=== PATIENT | male | born 1945 ===

== ENCOUNTER 2023-02-23 10:29 | Inpatient (IN) ==
[2023-02-23] MEDS ORDERED: IOPAMIDOL 100 ML BOTTLE IV ONE (10:30)
[2023-02-23] MEDS ORDERED: 0.9 % SODIUM CHLORIDE 1,000 ML IV ONE (10:39)
[2023-02-23] MEDS ORDERED: ONDANSETRON 4 MG/2 ML VIAL IV ONE (10:47)
[2023-02-23 10:54] LABS: POC Calcium, Ionized 1.17 (1.16-1.32); POC Creatinine 1.2 (0.6-1.2)
[2023-02-23 11:51] LABS: Basophils # (Auto) 0.04 K/mcL (0.00-0.30); Basophils % (Auto) 0.3 % (0.0-2.0); Eosinophils # (Auto) 0.07 K/mcL (0.00-0.70); Eosinophils % (Auto) 0.5 % (0.0-7.0); Hematocrit 41.2 % (40.1-51.0); Hemoglobin 13.9 g/dL (13.7-17.5); Lymphocytes % (Auto) 2.6 % (15.5-49.0); Mean Cell Volume 92.2 fL (80.0-100.0); Mean Corpuscular HGB Conc 33.7 g/dL (31.0-36.0); Mean Platelet Volume 10.2 fL (8.8-12.5); Monocytes # (Auto) 1.37 K/mcL (0.10-0.90); Monocytes % (Auto) 8.9 % (1.0-12.0); Neutrophils % (Auto) 87.1 % (38.0-78.0); Platelet Count 242 K/mcL (140-440); RBC 4.47 M/mcL (4.63-6.08); Red Cell Distribution Width 13.2 % (11.5-14.5); WBC 15.4 K/mcL (4.5-11.0)
[2023-02-23 12:05] LABS: ALT/SGPT 12 U/L (<40); AST/SGOT 13 U/L (<40); Albumin 3.8 gm/dL (3.2-5.2); Alkaline Phosphatase 41 U/L (39-117); Bilirubin,Direct 0.3 mg/dL (<0.3); Bilirubin,Total 1.1 mg/dL (0.1-1.0); Globulin 2.6 gm/dL (2.2-3.7)
[2023-02-23] MEDS ORDERED: PIPERACILLIN SODIUM/TAZOBACTAM 3.375 GM in DEXTROSE 5% IN WATER 50 ML IV ONE (13:05)
[2023-02-23] MEDS ORDERED: ONDANSETRON 4 MG/2 ML VIAL IV PRN (15:35)
[2023-02-23] MEDS ORDERED: MEROPENEM 1 GM in 0.9 % SODIUM CHLORIDE 50 ML IV SCH (15:45)
[2023-02-23] MEDS ORDERED: HYDROmorphone 0.5 MG/0.5 ML SYRINGE IV PRN (15:55)
[2023-02-23] MEDS: MEROPENEM 1 GM in 0.9 % SODIUM CHLORIDE 50 ML IV SCH ×2 (18:49→23:24)
[2023-02-23] MEDS: DEXTROSE 5%-LR 1,000 ML IV SCH (19:20)
[2023-02-23] MEDS: ACETAMINOPHEN 1,000 MG/100 ML BAG IV SCH (22:13)
[2023-02-24] MEDS: ACETAMINOPHEN 1,000 MG/100 ML BAG IV SCH ×3 (05:02→21:38)
[2023-02-24] MEDS: MEROPENEM 1 GM in 0.9 % SODIUM CHLORIDE 50 ML IV SCH ×3 (05:50→22:35)
[2023-02-24 07:01] LABS: Hematocrit 36.6 % (40.1-51.0); Hemoglobin 12.1 g/dL (13.7-17.5); Mean Corpuscular HGB Conc 33.1 g/dL (31.0-36.0); Mean Platelet Volume 10.1 fL (8.8-12.5); Platelet Count 210 K/mcL (140-440); RBC 3.98 M/mcL (4.63-6.08); Red Cell Distribution Width 13.2 % (11.5-14.5); WBC 9.2 K/mcL (4.5-11.0)
[2023-02-24 07:27] LABS: Blood Urea Nitrogen 16 mg/dL (8-23); Calcium 8.3 mg/dL (8.6-10.4); Carbon Dioxide 24 mmol/L (22-30); Chloride 99 mmol/L (96-108); Glomerular Filtration Rate 73; Glucose 93 mg/dL (70-105)
[2023-02-24] MEDS: METOPROLOL SUCCINATE 50 MG TAB.XL.24H PO SCH (10:30)
[2023-02-24] MEDS: LOSARTAN 50 MG TABLET PO SCH (10:30)
[2023-02-24] MEDS: CHLORTHALIDONE 25 MG TABLET PO SCH (10:31)
[2023-02-24] MEDS: DEXTROSE 5%-LR 1,000 ML IV SCH ×2 (10:45→12:22)
[2023-02-25] MEDS: DEXTROSE 5%-LR 1,000 ML IV SCH ×2 (03:58→11:32)
[2023-02-25] MEDS: MEROPENEM 1 GM in 0.9 % SODIUM CHLORIDE 50 ML IV SCH ×3 (05:37→21:17)
[2023-02-25] MEDS: ACETAMINOPHEN 1,000 MG/100 ML BAG IV SCH ×3 (06:10→21:57)
[2023-02-25 07:25] LABS: Hematocrit 39.7 % (40.1-51.0); Hemoglobin 13.1 g/dL (13.7-17.5); Mean Cell Volume 93.2 fL (80.0-100.0); Mean Platelet Volume 10.2 fL (8.8-12.5); Platelet Count 247 K/mcL (140-440); RBC 4.26 M/mcL (4.63-6.08); Red Cell Distribution Width 12.8 % (11.5-14.5); WBC 6.4 K/mcL (4.5-11.0)
[2023-02-25 08:27] LABS: Blood Urea Nitrogen 9 mg/dL (8-23); Calcium 8.8 mg/dL (8.6-10.4); Carbon Dioxide 30 mmol/L (22-30); Chloride 97 mmol/L (96-108); Glomerular Filtration Rate 87; Glucose 96 mg/dL (70-105)
[2023-02-25] MEDS: CHLORTHALIDONE 25 MG TABLET PO SCH (08:40)
[2023-02-25] MEDS: METOPROLOL SUCCINATE 50 MG TAB.XL.24H PO SCH (08:42)
[2023-02-25] MEDS: LOSARTAN 50 MG TABLET PO SCH (08:42)
[2023-02-25] MEDS ORDERED: POTASSIUM CHLORIDE 20 MEQ TABLET PO SCH (10:45)
[2023-02-25] MEDS: DEXTROSE 5%-NS W/20MEQ KCL 1,000 ML IV SCH (11:06)
[2023-02-26] MEDS: MEROPENEM 1 GM in 0.9 % SODIUM CHLORIDE 50 ML IV SCH (05:47)
[2023-02-26] MEDS: ACETAMINOPHEN 1,000 MG/100 ML BAG IV SCH (05:49)
[2023-02-26] MEDS: DEXTROSE 5%-NS W/20MEQ KCL 1,000 ML IV SCH (07:19)
[2023-02-26 07:42] LABS: Blood Urea Nitrogen 9 mg/dL (8-23); Calcium 8.4 mg/dL (8.6-10.4); Carbon Dioxide 26 mmol/L (22-30); Chloride 101 mmol/L (96-108); Glomerular Filtration Rate 92; Glucose 97 mg/dL (70-105)
[2023-02-26] MEDS: LOSARTAN 50 MG TABLET PO SCH (08:30)
[2023-02-26] MEDS: CHLORTHALIDONE 25 MG TABLET PO SCH (08:30)
[2023-02-26] MEDS: METOPROLOL SUCCINATE 50 MG TAB.XL.24H PO SCH (08:30)
== END 2023-02-26 10:35 | disposition home or self-care (01) | DRG 395 ==
LOC: ED 10:29 → MEDSUR 10:29
PROVIDERS: ADMIT Surgery Surgical Critical Care; ATTEND Surgery Surgical Critical Care

== ENCOUNTER 2023-04-27 16:08 | Observation (INO) ==
[2023-04-27] MEDS ORDERED: IOPAMIDOL 100 ML BOTTLE IV ONE (16:09)
[2023-04-27] MEDS ORDERED: ONDANSETRON 4 MG/2 ML VIAL IV ONE (16:41)
[2023-04-27 17:25] LABS: Basophils # (Auto) 0.03 K/mcL (0.00-0.30); Basophils % (Auto) 0.2 % (0.0-2.0); Eosinophils # (Auto) 0.02 K/mcL (0.00-0.70); Eosinophils % (Auto) 0.2 % (0.0-7.0); Hematocrit 38.8 % (40.1-51.0); Lymphocytes # (Auto) 0.49 K/mcL (1.50-4.80); Lymphocytes % (Auto) 3.8 % (15.5-49.0); Mean Cell Volume 92.6 fL (80.0-100.0); Mean Corpuscular HGB Conc 33.5 g/dL (31.0-36.0); Mean Platelet Volume 9.6 fL (8.8-12.5); Monocytes # (Auto) 1.04 K/mcL (0.10-0.90); Monocytes % (Auto) 8.1 % (1.0-12.0); Neutrophils % (Auto) 87.5 % (38.0-78.0); Platelet Count 255 K/mcL (140-440); RBC 4.19 M/mcL (4.63-6.08); WBC 12.8 K/mcL (4.5-11.0)
[2023-04-27 18:06] LABS: ALT/SGPT 13 U/L (<40); AST/SGOT 17 U/L (<40); Albumin/Globulin Ratio 1.6 (1.0-2.3); Alkaline Phosphatase 38 U/L (39-117); Bilirubin,Total 0.7 mg/dL (0.1-1.0); Blood Urea Nitrogen 16 mg/dL (8-23); Calcium 9.1 mg/dL (8.6-10.4); Carbon Dioxide 24 mmol/L (22-30); Chloride 96 mmol/L (96-108); Globulin 2.5 gm/dL (2.2-3.7); Glomerular Filtration Rate 91; Glucose 119 mg/dL (70-105)
[2023-04-27] MEDS ORDERED: PIPERACILLIN SODIUM/TAZOBACTAM 4.5 GM in DEXTROSE 5% IN WATER 50 ML IV SCH (19:00)
[2023-04-27 19:31] LABS: Partial Thromboplastin Time 33.4 sec (20.0-37.0); Prothrombin Time 14.1 sec (11.9-14.5)
[2023-04-27] MEDS: LACTATED RINGERS 1,000 ML IV SCH (19:59)
[2023-04-27] MEDS ORDERED: ONDANSETRON 4 MG/2 ML VIAL IV PRN (20:34)
[2023-04-27] MEDS: fentaNYL 100 MCG/2 ML VIAL IV PRN (21:02)
[2023-04-27] MEDS: PIPERACILLIN SODIUM/TAZOBACTAM 4.5 GM in DEXTROSE 5% IN WATER 50 ML IV SCH (21:05)
[2023-04-27 21:29] LABS: Appearance,Urine Clear (Clear); Bilirubin,Urine Negative (Negative); Color,Urine Yellow; Culture Indicated,Urine No; Glucose,Urine (UA) Negative (Negative); Ketones,Urine Negative (Negative); Leukocyte Esterase,Urine Negative /uL (Negative); Nitrate,Urine Negative (Negative); PH,Urine 5.5 (5.0-9.0); Protein,Urine Negative (Negative); Urine Blood Negative ery/mcL (Negative); Urobilinogen,Urine Normal
[2023-04-28] MEDS: PIPERACILLIN SODIUM/TAZOBACTAM 4.5 GM in DEXTROSE 5% IN WATER 50 ML IV SCH (05:04)
[2023-04-28] MEDS: fentaNYL 100 MCG/2 ML VIAL IV PRN (05:41)
[2023-04-28] MEDS: LACTATED RINGERS 1,000 ML IV SCH ×2 (05:42→14:47)
[2023-04-28 07:15] LABS: Basophils # (Auto) 0.02 K/mcL (0.00-0.30); Basophils % (Auto) 0.2 % (0.0-2.0); Eosinophils # (Auto) 0.03 K/mcL (0.00-0.70); Eosinophils % (Auto) 0.3 % (0.0-7.0); Hematocrit 37.7 % (40.1-51.0); Hemoglobin 12.1 g/dL (13.7-17.5); Lymphocytes # (Auto) 0.51 K/mcL (1.50-4.80); Lymphocytes % (Auto) 4.5 % (15.5-49.0); Mean Corpuscular HGB Conc 32.1 g/dL (31.0-36.0); Mean Platelet Volume 9.7 fL (8.8-12.5); Monocytes # (Auto) 1.19 K/mcL (0.10-0.90); Monocytes % (Auto) 10.5 % (1.0-12.0); Neutrophils % (Auto) 84.2 % (38.0-78.0); Platelet Count 226 K/mcL (140-440); RBC 3.97 M/mcL (4.63-6.08); Red Cell Distribution Width 14.3 % (11.5-14.5); WBC 11.3 K/mcL (4.5-11.0)
[2023-04-28] MEDS ORDERED: PROPOFOL 200 MG/20 ML VIAL IV ONE (11:16)
[2023-04-28] MEDS ORDERED: ROCURONIUM 10 MG/ML ML IV ONE (11:16)
[2023-04-28] MEDS ORDERED: LIDOCAINE 2% PF 5 ML VIAL ONE (11:16)
[2023-04-28] MEDS ORDERED: ROPIVACAINE HCL/PF 30 ML VIAL IJ ONE (11:28)
[2023-04-28] MEDS ORDERED: DEXAMETHASONE 10 MG/ML VIAL ONE (11:32)
[2023-04-28] MEDS ORDERED: ACETAMINOPHEN 1,000 MG/100 ML BAG IV ONE (12:27)
[2023-04-28] MEDS ORDERED: PIPERACILLIN SODIUM/TAZOBACTAM 4.5 GM in DEXTROSE 5% IN WATER 100 ML IV SCH (12:30)
[2023-04-28] MEDS ORDERED: ONDANSETRON 4 MG/2 ML VIAL ONE (12:38)
[2023-04-28] MEDS ORDERED: MAGNESIUM SULFATE 2 GM/50 ML BAG IV ONE (12:38)
[2023-04-28] MEDS ORDERED: SUGAMMADEX SODIUM 200 MG/2 ML VIAL IV ONE (12:38)
[2023-04-28] MEDS ORDERED: KETOROLAC 30 MG/ML VIAL ONE (12:38)
[2023-04-28] MEDS ORDERED: ESMOLOL 100 MG/10 ML VIAL IV ONE (12:38)
[2023-04-28] MEDS ORDERED: HYDROmorphone 1 MG/ML SYRINGE IV PRN (13:03)
[2023-04-28] MEDS ORDERED: NALOXONE HCL 0.4 MG/ML VIAL IV PRN (13:08)
[2023-04-28] MEDS ORDERED: ATROPINE SULFATE 0.4 MG/ML VIAL IV PRN (13:08)
[2023-04-28] MEDS ORDERED: ONDANSETRON 4 MG/2 ML VIAL IV PRN (13:08)
[2023-04-28] MEDS ORDERED: HYDROmorphone 0.5 MG/0.5 ML SYRINGE IV PRN (13:08)
[2023-04-28] MEDS ORDERED: fentaNYL 100 MCG/2 ML VIAL IV PRN (13:08)
[2023-04-28] MEDS ORDERED: IPRATROPIUM/ALBUTEROL 3 ML AMPUL.NEB NEB PRN (13:08)
[2023-04-28] MEDS ORDERED: PROMETHAZINE 25 MG/ML VIAL IV PRN (13:08)
[2023-04-28] MEDS ORDERED: PIPERACILLIN SODIUM/TAZOBACTAM 3.375 GM in DEXTROSE 5% IN WATER 50 ML IV SCH (13:15)
[2023-04-28] MEDS ORDERED: LACTATED RINGERS 1,000 ML IV SCH (13:15)
[2023-04-28] MEDS: 0.9 % SODIUM CHLORIDE 10 ML SYRINGE IV SCH ×2 (14:43→22:00)
[2023-04-28] MEDS: PIPERACILLIN SODIUM/TAZOBACTAM 3.375 GM in DEXTROSE 5% IN WATER 100 ML IV SCH (22:00)
[2023-04-29] MEDS: LACTATED RINGERS 1,000 ML IV SCH ×4 (00:07→22:35)
[2023-04-29] MEDS: PIPERACILLIN SODIUM/TAZOBACTAM 3.375 GM in DEXTROSE 5% IN WATER 100 ML IV SCH ×3 (05:15→21:41)
[2023-04-29] MEDS: 0.9 % SODIUM CHLORIDE 10 ML SYRINGE IV SCH ×3 (05:16→21:42)
[2023-04-29 06:13] LABS: Basophils # (Auto) 0.01 K/mcL (0.00-0.30); Basophils % (Auto) 0.1 % (0.0-2.0); Eosinophils # (Auto) 0 K/mcL (0.00-0.70); Eosinophils % (Auto) 0 % (0.0-7.0); Hematocrit 32.8 % (40.1-51.0); Lymphocytes # (Auto) 0.34 K/mcL (1.50-4.80); Lymphocytes % (Auto) 2.6 % (15.5-49.0); Mean Cell Volume 92.7 fL (80.0-100.0); Mean Corpuscular HGB Conc 33.5 g/dL (31.0-36.0); Monocytes # (Auto) 0.91 K/mcL (0.10-0.90); Neutrophils % (Auto) 90.1 % (38.0-78.0); Platelet Count 202 K/mcL (140-440); RBC 3.54 M/mcL (4.63-6.08); Red Cell Distribution Width 13.5 % (11.5-14.5)
[2023-04-29 06:24] LABS: ALT/SGPT 15 U/L (<40); AST/SGOT 14 U/L (<40); Albumin 3.1 gm/dL (3.2-5.2); Albumin/Globulin Ratio 1.4 (1.0-2.3); Alkaline Phosphatase 31 U/L (39-117); Bilirubin,Direct 0.3 mg/dL (<0.3); Bilirubin,Total 0.6 mg/dL (0.1-1.0); Blood Urea Nitrogen 13 mg/dL (8-23); Calcium 8.2 mg/dL (8.6-10.4); Carbon Dioxide 27 mmol/L (22-30); Chloride 96 mmol/L (96-108); Globulin 2.2 gm/dL (2.2-3.7); Glomerular Filtration Rate 91; Glucose 138 mg/dL (70-105); Lactate Dehydrogenase 99 U/L (135-225); Phosphorous 2.7 mg/dL (2.5-4.5); Triglycerides 41 mg/dL (<150); Uric Acid 2.9 mg/dL (2.5-8.0)
[2023-04-29] MEDS ORDERED: FLUZONE HD QS2023-24/PF 240 MCG/0.7 ML SYRINGE IM ONE (10:00)
[2023-04-30] MEDS: LACTATED RINGERS 1,000 ML IV SCH ×2 (03:48→07:51)
[2023-04-30] MEDS: PIPERACILLIN SODIUM/TAZOBACTAM 3.375 GM in DEXTROSE 5% IN WATER 100 ML IV SCH ×2 (05:28→13:19)
[2023-04-30] MEDS: 0.9 % SODIUM CHLORIDE 10 ML SYRINGE IV SCH ×2 (05:28→12:22)
[2023-04-30 06:33] LABS: ALT/SGPT 14 U/L (<40); AST/SGOT 15 U/L (<40); Albumin 2.8 gm/dL (3.2-5.2); Albumin/Globulin Ratio 1.3 (1.0-2.3); Alkaline Phosphatase 29 U/L (39-117); Bilirubin,Direct < 0.2 mg/dL (0-0.3); Bilirubin,Total 0.5 mg/dL (0.1-1.0); Blood Urea Nitrogen 11 mg/dL (8-23); Calcium 8.1 mg/dL (8.6-10.4); Carbon Dioxide 28 mmol/L (22-30); Chloride 100 mmol/L (96-108); Globulin 2.1 gm/dL (2.2-3.7); Glomerular Filtration Rate 97; Glucose 96 mg/dL (70-105); Lactate Dehydrogenase 94 U/L (135-225); Phosphorous 1.8 mg/dL (2.5-4.5); Triglycerides 70 mg/dL (<150)
[2023-04-30 10:01] LABS: Basophils # (Auto) 0.02 K/mcL (0.00-0.30); Basophils % (Auto) 0.3 % (0.0-2.0); Eosinophils # (Auto) 0.14 K/mcL (0.00-0.70); Eosinophils % (Auto) 1.8 % (0.0-7.0); Hematocrit 32.9 % (40.1-51.0); Hemoglobin 10.8 g/dL (13.7-17.5); Lymphocytes % (Auto) 9.2 % (15.5-49.0); Mean Corpuscular HGB Conc 32.8 g/dL (31.0-36.0); Mean Platelet Volume 10.3 fL (8.8-12.5); Monocytes # (Auto) 0.92 K/mcL (0.10-0.90); Monocytes % (Auto) 12.1 % (1.0-12.0); Neutrophils % (Auto) 76.3 % (38.0-78.0); Platelet Count 247 K/mcL (140-440); Red Cell Distribution Width 13.6 % (11.5-14.5); WBC 7.6 K/mcL (4.5-11.0)
== END 2023-04-30 17:30 | disposition home or self-care (01) ==
LOC: ED 16:08 → SUR 04-28 11:07 → MEDSUR 04-28 11:07 → SUR 04-28 11:10
PROVIDERS: ADMIT Family Medicine Adult Medicine; ATTEND Family Medicine Adult Medicine
PROC: LAPAPPY (ICD-10-PCS; 2023-04-28 11:45)